=== PATIENT | male | born 1985 | race Caucasian/White ===

== ENCOUNTER 2019-10-28 01:46 | Emergency (ER) | payer OTHER ==
[~2019-10-28] VITALS: Ht 167.6 cm; Wt 59.0 kg
[~2019-10-28 01:46] MED LIST: ACETAMINOPHEN500 MG PO
[2019-10-28] MEDS ORDERED: NEURONTIN300 MG PO (02:09)
[2019-10-28] MEDS ORDERED: CYCL10 PO (02:09)
== END 2019-10-28 03:32 | disposition home or self-care (01) ==
LOC: ER 01:46
DX: G62.9 Polyneuropathy, unspecified (principal); Z88.6 Allergy status to analgesic agent; F17.200 Nicotine dependence, unspecified, uncomplicated
CPT/HCPCS: 99283; A9270